=== PATIENT | female | born 1980 | race Caucasian/White ===

== ENCOUNTER 2021-08-06 15:51 | Emergency (ER) | payer SELFPAY ==
[~2021-08-06] VITALS: Ht 172.7 cm; Wt 125.5 kg
[2021-08-06 16:00] VITALS: TEMP 98.3
[2021-08-06 16:28] LABS: BASO # 0.1 K/mm3 (0.0-0.2); BASO % 0.5 % (0.0-2.0); EOS # 0.2 K/mm3 (0.0-0.7); EOS % 1.5 % (0.0-4.0); GRAN % 73.3 % (42.2-75.2); HEMATOCRIT 38.3 % (37.0-47.0); HEMOGLOBIN 11.2 g/dl (12.5-16.0); LYMPH # 2.5 K/mm3 (1.2-3.4); LYMPH % 18.1 % (20.0-51.0); MEAN CELL VOLUME 84 fl (80.0-100.0); MEAN CORPUSCULAR HEMOGLOBIN 25 pg (27-31); MEAN CORPUSCULAR HGB CONC 29 g/dl (33.0-37.0); MEAN PLATELET VOLUME 8.9 fl (7.4-10.4); MONO # 0.8 K/mm3 (0.1-0.6); MONO % 5.7 % (1.7-9.3); PLATELET COUNT 480 K/mm3 (130-400); RED BLOOD COUNT 4.58 M/mm3 (4.10-5.30); REDCELL DISTRIBUTION WIDTH-CV 17.2 % (11.5-14.5)
[2021-08-06 16:44] LABS: ALBUMIN 4.1 gm/dL (3.5-5.0); BILIRUBIN,TOTAL 0.6 mg/dL (0.2-1.2); CALCIUM 9.7 mg/dL (8.4-10.2); POTASSIUM 3.6 mmol/L (3.5-4.5); TOTAL PROTEIN 8.4 gm/dL (6.2-8.1)
[2021-08-06 16:47] LABS: COLLECTION METHOD CLEAN CATCH
[2021-08-06 17:00] LABS: CREATININE, serum 0.94 mg/dL (0.57-1.11)
[2021-08-06] MEDS ORDERED: GLUCOPHAGE1000 MG PO (17:00)
[2021-08-06] MEDS ORDERED: PRILOSEC10 MG PO (17:00)
[2021-08-06] MEDS ORDERED: SINGULAIR 110 MG/TAB PO (17:01)
[2021-08-06] MEDS ORDERED: DESYREL 50MG50 MG PO (17:01)
[2021-08-06 17:18] LABS: PH 5 (5-8); SQUAMOUS EPITHELIAL 0-2 /hpf (0-10); URINE APPEARANCE Hazy (CLEAR/HAZY); URINE BACTERIA None Seen /hpf (NONE SEEN); URINE BILIRUBIN Negative (NEGATIVE); URINE BLOOD 3+ (NEGATIVE); URINE COLOR Yellow (YELLOW); URINE GLUCOSE 3+ (NEGATIVE); URINE KETONE Negative (NEGATIVE); URINE LEUKOCYTE ESTERASE Negative (NEGATIVE); URINE NITRATE Negative (NEGATIVE); URINE PROTEIN(semi-quant) 1+ (NEGATIVE); URINE RBC >50 /hpf (0-2); URINE UROBILINOGEN Negative (NEGATIVE)
[2021-08-06] MEDS ORDERED: NAPROSYN500 MG PO (19:03)
[2021-08-06 19:12] VITALS: BP 144/99; PULSE 100
[2021-08-08] MEDS ORDERED: BACTRIM DS 8001 TAB PO (11:01)
== END 2021-08-06 19:17 | disposition home or self-care (01) ==
LOC: COL.ER 15:51
PROVIDERS: Nurse Practitioner Primary Care
DX: N39.0 Urinary tract infection, site not specified (principal); N92.0 Excessive and frequent menstruation with regular cycle; Z32.02 Encounter for pregnancy test, result negative
CPT/HCPCS: J7030; Q9967